=== PATIENT | female | born 1985 | race Two or more races ===

== ENCOUNTER 2024-10-15 23:59 | Emergency (ER) | payer OTHER ==
[~2024-10-15] VITALS: Ht 162.6 cm; Wt 86.2 kg
[2024-10-16] MEDS ORDERED: WELLBUTRIN XL300 MG PO (01:32)
[2024-10-16] MEDS ORDERED: LEXAPRO5 MG PO (01:32)
[2024-10-16] MEDS ORDERED: 0.9 % SODIUM CHLORIDE 1,000 ML IV STA (03:58)
[2024-10-16 06:13] LABS: HEMATOCRIT 39.3 % (36.0-45.00); HEMOGLOBIN 13.7 g/dL (12.0-15.00); MEAN CELL VOLUME 92.1 fL (80.00-100.00); MEAN CORPUSCULAR HEMOGLOBIN 32.1 pg (27.00-32.0); MEAN CORPUSCULAR HGB CONC 34.8 g/dl (32.0-36.0); PLATELET COUNT 248 K/uL (150-450); RED BLOOD COUNT 4.27 M/uL (4.00-6.00); RED CELL DISTRIBUTION WIDTH 13.3 % (11.5-14.5)
[2024-10-16 06:17] LABS: PH,URINE 5.5 (5.0-8.0); URINE APPEARANCE Clear; URINE BILIRRUBIN Negative (NEGATIVE); URINE BLOOD Negative; URINE COLOR Yellow; URINE GLUCOSE Negative (NEGATIVE); URINE KETONE Trace (NEGATIVE); URINE LEUKOCYTE Negative; URINE NITRATE Negative; URINE PROTEIN Negative (NEGATIVE); URINE UROBILINOGEN 0.2 E.U./dl
[2024-10-16 06:19] LABS: URINE BACTERIA 696.4 uL (0.0-1933); URINE EPITHELIAL CELLS 22.3 uL (0.0-38.8); URINE RBC 5.7 uL (0.0-20.8)
[2024-10-16 06:21] LABS: URINE CAST 0.29 uL (0.0-1.40)
[2024-10-16 08:57] LABS: CALCIUM 8.8 mg/dL (8.5-10.1); CREATININE SERUM 0.61 mg/dL (0.55-1.02); GFR 109.19; POTASSIUM 3.54 mEq/L (3.5-5.1)
== END 2024-10-16 11:52 | disposition home or self-care (01) ==
LOC: ER 10-16 00:01
DX: K52.9 Noninfective gastroenteritis and colitis, unspecified (principal); Z20.822 Contact with and (suspected) exposure to COVID-19